=== PATIENT | female | born 1955 ===

== ENCOUNTER 2019-01-10 07:07 | Outpatient (CLI) | payer MEDICARE, MEDICAID | END 2019-01-10 07:08 | disposition home or self-care (01) | LOC: C.CARD 07:07 | DX: R07.9 Chest pain, unspecified (principal); R60.9 Edema, unspecified ==

== ENCOUNTER → 2019-02-21 | Outpatient (CLI) | payer MEDICARE, MEDICAID | LOC: C.CARD 07:03 | DX: R07.9 Chest pain, unspecified (principal); R60.9 Edema, unspecified ==